=== PATIENT | female | born 1965 | race Caucasian/White ===

== ENCOUNTER 2017-08-13 21:29 | Emergency (ER) | payer BC, OTHER ==
[2017-08-13 21:35] VITALS: RESP 16; TEMP 97.7
[2017-08-13] MEDS ORDERED: OXYCODONE/APAP 5/325 TAB PO ONE (22:15)
--- NOTE | 2017-08-13 22:16 | EDPHY ---
H & P Stated Complaint: says she tripped and fell landing on RUE/shoulder, c/o pain Time Seen by Provider: 08/13/17 22:15 HPI/ROS: HPI: This is a 50-year-old female presents with Chief Complaint: Right wrist and right shoulder pain Location: Right lateral wrist/right bicep Quality: Pain Duration: 1 hour prior to arrival Signs and Symptoms: No bleeding, no radiation, no numbness, no weakness, no tingling, no incontinence, + decreased range of motion Timing: Acute Severity: 05/23 Context: Patient reports that she was walking her dog this evening and they pulled her, she tripped over her feet and landed on her right outstretched hand. She complains of pain in her right bicep as well has her right medial wrist with associated swelling and deformity. She denies any paresthesias. Right-hand dominant. Denies hitting her head or loss of consciousness. Modifying Factors: Has not applied ice or taking any [id number] medications Comment: ROS: Constitutional: No fever, no chills, no weight loss Eyes: No blurred vision Respiratory: No shortness of breath, no cough Cardiovascular: No chest pain Gastrointestinal: No nausea, no vomiting no diarrhea Genitourinary: No dysuria Extremities: No myalgias Neurologic: No weakness, no numbness Skin: No rashes Hematologic: No bruising, no bleeding MEDICAL/SURGICAL/SOCIAL HISTORY: Medical history: MS; HTN Surgical history: surgery for prolapsed bladder, vagina, rectum in 2003 Social history: , has children. CONSTITUTIONAL: Well-developed well-nourished pleasant adult female, awake and alert, no obvious distress HEENT: Atraumatic and normocephalic, PERRL, EOMI. Tympanic membranes clear. Oropharynx clear, no exudate and moist pink mucosa. Airway patent. No lymphadenopathy. No meningismus. Cardiovascular: Normal S1/S2, regular rate, regular rhythm, without murmur rub or gallop. PULMONARY/CHEST: Symmetrical and nontender. Clear to auscultation bilaterally. Good air movement. No accessory muscle usage. ABDOMEN: Soft, nondistended, nontender, no rebound, no guarding, no peritoneal signs, no masses or organomegaly. No CVAT. EXTREMITIES: 2/2 pulses, right wrist swelling; tenderness to palpation; pain increased with supination and pronation; extension to 50, flexion the 60, radial and ulnar deviation to 20 degrees. Mild decrease noted in ranges of motion secondary to pain. Light touch sensation intact. Right elbow no epicondyle tenderness; full extension and flexion to 150. Right shoulder no AC joint tenderness; abduction, abduction, arc test within normal limits. Biceps strength 5/5; no palpable deformity. no clubbing, no cyanosis or edema. NEUROLOGICAL: no focal neuro deficits. GCS 15. SKIN: Warm and dry, no erythema. no rash. Good capillary refill. Source: Patient Exam Limitations: No limitations - Medical/Surgical History Hx Asthma: No Hx Chronic Respiratory Disease: No Hx Diabetes: No Hx Cardiac Disease: Yes Hx Renal Disease: No Hx Cirrhosis: No Hx Alcoholism: No Hx HIV/AIDS: No Hx Splenectomy or Spleen Trauma: No Other PMH: surgery for prolapsed bladder, vagina, rectum in 2003; MS; HTN - Social History Smoking Status: Former smoker Constitutional: Initial Vital Signs Temperature (C) 36.5 C 08/13/17 21:32 Heart Rate 63 08/13/17 21:32 Respiratory Rate 16 08/13/17 21:32 Blood Pressure 110/62 08/13/17 21:32 O2 Sat (%) 96 08/13/17 21:32 O2 Delivery Mode Room Air Allergies/Adverse Reactions: No Known Allergies Allergy (Unverified 08/13/17 21:37) Home Medications: Medication Instructions Recorded Lisdexamfetamine Dimesylate 60 mg PO DAILY 12/03/15 [VYVANSE] Metoprolol Succinate Xr [Toprol Xl] 50 mg PO DAILY 12/03/15 Simethicone [GAS-X] 160 mg PO DAILY PRN 12/03/15 AMOXICILLIN 08/13/17 oxyCODONE/APAP 5/325 [Percocet 1 - 2 tab PO Q4H PRN #20 tab 08/13/17 5/325 (*)] Medical Decision Making - Diagnostics Imaging Results: Imaging Impressions Elbow X-Ray 08/13/17 22:15 Impression: Sequela of prior avulsion fragments off the lateral humeral condyle. Shoulder X-Ray 08/13/17 22:15 Impression: There is no acute osseous abnormality identified. If there is progression of the patient's symptoms, consider MR imaging. Wrist X-Ray 08/13/17 22:15 Impression: Acute distal radial fracture. Procedures: Procedure: Splint placement. A right radial gutter splint was applied emergency Room community planning technician. After application of the splint I returned and re-examined the patient. The splint was adequately immobilizing the joint and distal to the splint the patient's circulation and sensation was intact. ED Course/Re-evaluation: Right shoulder x-ray, right elbow x-ray, right wrist x-ray, oral medication ordered Given Percocet with adequate relief of pain Right wrist x-ray my read shows distal radial fracture; minimal displacement. Placed in radial gutter splint. Rice therapy. Ortho follow-up. Right elbow x-ray my read shows calcifications versus old avulsion fracture; no acute fracture. Right shoulder x-ray my read shows no fracture/significant degenerative changes No signs of neurovascular compromise/tenting of skin/compartment syndrome/ extremities and joints examined above and below area of concern and are neurovascularly intact. Differential Diagnosis: Differential includes fracture, sprain, dislocation, ligament injury, nerve injury, contusion. - Data Points Medications Given: Discontinued Medications Oxycodone/Acetaminophen (Percocet 5/325) 1 tab PO EDNOW ONE Stop: 08/13/17 22:16 Last Admin: 08/13/17 22:25 Dose: 1 tab Oxycodone/Acetaminophen (Percocet 5/325mg Prepack#4) 1 btl TAKEHOME EDNOW ONE Stop: 08/13/17 23:15 Last Admin: 08/13/17 23:32 Dose: 1 btl Departure - Departure Disposition: Home, Routine, Self-Care Clinical Impression: Wrist fracture, right Qualifiers: Encounter type: initial encounter Fracture type: closed Qualified Code(s): S62.101A - Fracture of unspecified carpal bone, right wrist, initial encounter for closed fracture Distal radius fracture, right Qualifiers: Encounter type: initial encounter Fracture type: closed Fracture morphology: unspecified fracture morphology Qualified Code(s): S52.501A - Unspecified fracture of the lower end of right radius, initial encounter for closed fracture Condition: Good Instructions: Wrist Fracture in Adults (ED) Additional Instructions: Keep the splint in place and dry until seen by Orthopedics. Take ibuprofen 600-800 mg every 6-8 hours with food as needed for pain and inflammation. He may take Percocet 1-2 tabs every 4-6 hours as needed for severe or breakthrough pain. Apply ice for 30 minutes at a time; 2-3 times per day for the next 1-2 days. Elevate extremity over the next few days to reduce swelling and inflammation. Follow up with Orthopedics in 3-5 days at which time they will evaluate and recommend with you if conservative management versus surgery is indicated. If at any time you have pain that becomes severe not relieved by pain medications, numbness, discoloration in your hand or fingers; return to the ER immediately. Referrals: STEFFANY ENCARNACION [Primary Care Provider] - As per Instructions Pawel Vega MD [Medical Doctor] - As per Instructions Prescriptions: oxyCODONE/APAP 5/325 [Percocet 5/325 (*)] 1 - 2 tab PO Q4H PRN #20 tab PRN Reason: Pain, Severe
[2017-08-13] MEDS ORDERED: OXYCODONE/APAP 5/325MG PREPACK#4 BTL TAKEHOME ONE (23:14)
[2017-08-13 23:45] VITALS: BP 109/67; PULSE 66; O2SAT 98
== END 2017-08-13 23:45 | disposition home or self-care (01) ==
DX: S62.101A Fracture of unspecified carpal bone, right wrist, initial encounter for closed fracture (principal); S52.501A Unspecified fracture of the lower end of right radius, initial encounter for closed fracture; W01.0XXA Fall on same level from slipping, tripping and stumbling without subsequent striking against object, initial encounter; Y99.8 Other external cause status; Y93.01 Activity, walking, marching and hiking; Z87.891 Personal history of nicotine dependence; I10 Essential (primary) hypertension